=== PATIENT | male | born 1990 | race African-American/Black ===

== ENCOUNTER 2017-09-05 20:30 | Emergency (ER) | payer SELFPAY | END 2017-09-05 21:41 | disposition home or self-care (01) | LOC: ERS 20:30 | DX: K02.9 Dental caries, unspecified (principal); K05.10 Chronic gingivitis, plaque induced; F17.210 Nicotine dependence, cigarettes, uncomplicated | CPT/HCPCS: 99406 ==

== ENCOUNTER 2018-03-08 07:05 | Emergency (ER) | payer SELFPAY | END 2018-03-08 08:47 | disposition home or self-care (01) | LOC: ERS 07:05 | DX: I44.30 Unspecified atrioventricular block (principal); I10 Essential (primary) hypertension; F17.210 Nicotine dependence, cigarettes, uncomplicated | CPT/HCPCS: 93005 ==

== ENCOUNTER 2023-05-28 11:12 | Emergency (ER) | payer BC, SELFPAY | END 2023-05-28 12:16 | disposition home or self-care (01) | LOC: ERS 11:12 | DX: R19.4 Change in bowel habit (principal); R10.30 Lower abdominal pain, unspecified; F17.210 Nicotine dependence, cigarettes, uncomplicated | CPT/HCPCS: 99283 ==

== ENCOUNTER 2023-06-29 23:56 | Emergency (ER) | payer SELFPAY | END 2023-06-30 01:40 | disposition home or self-care (01) | LOC: ERS 23:56 | DX: S63.609A Unspecified sprain of unspecified thumb, initial encounter (principal); F17.210 Nicotine dependence, cigarettes, uncomplicated; X58.XXXA Exposure to other specified factors, initial encounter | CPT/HCPCS: 99283 ==